=== PATIENT | female | born 1970 | race Caucasian/White ===

== ENCOUNTER → 2018-07-02 12:12 | Outpatient (CLI) | payer OTHER, SELFPAY ==
[2018-07-02 13:51] LABS: Cancer Antigen 125 < 6 U/mL (0-35)
[2018-07-05 17:20] LABS: Human HE4 Antigen 33 pmol/L
== END ==
PROVIDERS: PCP Physician Assistant; Visit Provider Obstetrics & Gynecology
DX: N83.201 Unspecified ovarian cyst, right side (principal)
CPT/HCPCS: 36415; 86304; 86305

== ENCOUNTER 2018-08-08 08:26 | Day surgery (SDC) | payer OTHER, SELFPAY ==
[2018-08-04 14:15] VITALS: BMI 26.8
[2018-08-08] VITALS (13 sets, daily range): BP systolic 100–112; BP diastolic 58–75; PULSE 64–76; RESP 14–18; TEMP 36.1–36.6; O2SAT 94–100; BMI 26.4
--- NOTE | 2018-08-08 | PATH_ITS ---
[facility] Accession Number: [id number] . 01 Material submitted: . PART A: BILATERAL FALLOPIAN TUBES PART B: CERVICAL POLYP . 02 Diagnosis: A. Bilateral Fallopian Tubes, Bilateral Tubal Ligation: Two complete cross-sections of fallopian tube. No evidence of neoplasm. . B. Cervical Polyp: Features suggestive of nabothian cyst. Negative for neoplasm. MRV/08/11/2018 . 02 Electronically signed: . Desmond Carballo MD, PhD, Pathologist NPI- [id number] . 01 Gross description: . Received two formalin-filled containers, both labeled with the patient's name: . A. In a container labeled bilateral fallopian tubes, are two fimbriated, cylindrical-shaped, rough portions of tissue. The first measures 5.0 x 0.7 x 0.6 cm in greatest dimensions. Inked blue. Four ocean import representative sections are submitted in cassette A1. The second piece measures 5.0 x 0.7 x 0.6 cm. Inked black. Four ocean import representative sections are submitted in cassette A2. B. In a container labeled 2. Cervical polyp, the specimen consists of approximately a 1.0 cc aggregate of tissue, mucoid material, and blood, which is filtered, wrapped, and entirely submitted in cassette B. ([id number]) /FRR . 02 Pathologist provided ICD-10: Z30.2, N84.1 . 02 CPT . 061744, 880023 Specimen Comment: A duplicate report has been generated due to demographic updates. Performed at: 01 [facility] [address] [place] [address], [place], [place] [id number] MD Khadar Angulo MD Phone: [phone] Performed at: 02 [facility] [place] [address] [place] [id number] MD Jerome Diaz MD Phone: [phone]
[2018-08-08] MEDS: LACTATED RINGERS 1,000 ML 42 ML IV ×2 (08:59→10:45)
[2018-08-08] MEDS: APREPITANT 40 MG CAPSULE PO (09:29)
--- NOTE | 2018-08-08 10:08 | SUR.OPER ---
Lithotomy on padded OR bed, head on pillow, arms secured on padded arm boards at <90 degrees abduction. Legs secured in padded yellow fins stirrups.
[2018-08-08] MEDS: BUPIVACAINE 0.5% W/ EPI (PF) VIAL 30 ML INJ (10:24)
--- NOTE | 2018-08-08 10:48 | PM.PREOP ---
Pre-operative Note Interval Note Pre-op Check: Yes History & Physical exam performed today by Physician Changes: No
[2018-08-08] MEDS: HYDROMORPHONE 2 MG INJ 0.5 MG IV ×3 (11:00→11:16)
[2018-08-08] MEDS: HYDROCODONE/ACET 5/325 TABLET 1 TAB PO (11:42)
--- NOTE | 2018-09-03 22:38 | P.OP_ITS ---
Operative Date/Time/Diagnoses Date of procedure: 08/08/18 Time of procedure: 11:30 Pre-op diagnosis: Right ovarian cyst Desires sterilization Post-op diagnosis: same Procedure: Procedures Operation Date: 08/08/18 09:45 Actual Procedures Side Surgeon p Laparoscopic Bilateral salpingectomies, lysis of adhesions, excision cervical polyp Claudine Odom MD Indications: Persistent right ovarian cyst Desires sterilization Surgeon: Claudine Odom Anesthesia Type: General Operative Notes Findings: Normal uterus, tubes, and ovaries. Normal gallbladder and liver. Right lower quadrant adhesions Closure Type: primary Specimen(s): left tube, right tube and other (Cervical polyp) Applied: catheter (In and out) Estimated blood loss (mL): 5 Blood products transfused: none Procedure in detail: After informed consent was obtained, the patient was taken to the operating room where she was placed in the dorsal supine position. After adequate general endotracheal anesthesia was achieved, she was placed in the dorsal lithotomy position, and prepped and draped in the usual sterile fashion. A bivalve speculum was placed into the vagina and the anterior lip of the cervix grasped with a single-tooth tenaculum. Cervical os was sequentially dilated until the Zumi uterine manipulator could passed easily into the endometrial cavity. The single-tooth tenaculum was removed from the anterior lip of the cervix. The bivalve speculum was removed from the vagina. Attention was then turned to the abdomen where 6 cc of 0.5% Marcaine with epinephrine were injected in the umbilical fold. A 5 mm incision was made. The Veress needle was placed into the peritoneal cavity, and its placement confirmed by aspiration and drop test. The abdominal cavity was insufflated with 3.2 L of CO2. The Veress needle was removed, and a 5 mm trocar was placed without difficulty. 2 other incisions were made 4 cm lateral to the midline after 6 cc of 0.5% Marcaine with epinephrine were injected and two 5 mm incisions were made. Two 5 mm trocars were placed under direct visualization. The pelvis and abdomen were inspected. The right ovarian cyst was gone. There were adhesions of the bowel to the right anterior abdominal wall. Using the Endo Trevor with cautery, the bowel was taken down off of the anterior abdominal wall. Hemostasis was achieved. The right tube was grasped with an atraumatic grasper. Using the PlasmaKinetic was settings of 40 w, the mesosalpinx was cauterized and cut all the way down to the cornua of the uterus. The tube was removed through the lateral 5 mm trocar. This was repeated on the patient's left tube. The instruments were removed from the abdomen. The CO2 was allowed to escape. The incisions were repaired with 4 0 undyed Vicryl in a subcuticular fashion. The Zumi uterine manipulator was removed from the uterus. There was a polyp coming from the endocervical os. This was removed using the Bovie with a loop. Hemostasis was achieved. Sponge , lap, and instrument counts were correct x2. The patient tolerated the procedure well, and was taken to PACU in stable condition. Complications: none Post-operative Condition: stable Disposition: PACU Plan for aftercare: Home after recovery
--- NOTE | 2018-10-17 10:57 | P.HP_ITS ---
History of Present Illness Date Patient Seen: 08/08/18 Time Patient Seen: 09:30 Chief complaint: laparoscopic RSO left [id number] Narrative: Patient is a 47-year-old 2 para 2 with a persistent right ovarian cyst Patient is here for a laparoscopic excision of right ovarian cyst as well as bilateral salpingectomies for sterilization purposes. Patient History Surgical History H/O bilateral salpingectomy (Resolved 08/08/18) History of shoulder surgery (Resolved) History of third molar tooth extraction (Resolved) History of tonsillectomy (Resolved ~1988) Family & Social History Social History: household members spouse,children Tobacco & Substance use: Smoking Status Never smoker alcohol intake current Substance Use Type does not use Meds Home Medications Medication Instructions Recorded Confirmed Type cetirizine 10 mg PO PRN #0 05/01/11 08/04/18 History tramadol 50 mg PO Q6H PRN #14 tab 08/08/18 Rx Allergies Allergy/AdvReac Type Severity Reaction Status Date / Time codeine Allergy Unknown NAUSEA Verified 08/08/18 08:42 Exam Vital Signs (past 8 hours): Oxygen Delivery Method Room Air Narrative Exam Narrative: HEENT: No thyromegaly, no anterior cervical or supraclavicular lymphadenopathy. Lungs:Clear to auscultation bilaterally, no wheezes. Cardiovascular: Regular rate and rhythm, no murmurs, rubs, or gallops. Abdomen: No scars. No hepatosplenomegaly. No masses palpable. External genitalia: Normal Vagina: Normal Cervix: Normal Bimanual exam: 6 Week size uterus. Mobile. Rectal: No masses. Assessment & Plan (1) Right ovarian cyst: Current visit: No Status: Acute Plan: Assessment/Plan Narrative: Assessment: 47-year-old 2 para 2 with a persistent right ovarian cyst Desires permanent sterilization Plan: Laparoscopic excision of cyst and bilateral salpingectomy The risks, benefits, and alternatives to the procedure were explained to the patient. The risks including bleeding, infection, injury to the bowel, bladder , or ureters. She understands these risks and agrees to proceed. A full PAR-Q was held and consent form was signed.
== END 2018-08-08 12:28 | disposition home or self-care (01) ==
PROVIDERS: PCP Physician Assistant; Visit Provider Obstetrics & Gynecology
PROC: (CPT 58661; principal; 2018-08-08 09:45)
DX: N84.1 Polyp of cervix uteri (principal); Z30.2 Encounter for sterilization
CPT/HCPCS: 58661; 57500; J1100; J1170; J1885; J2250; J2405; J2704; J3010; J8501

== ENCOUNTER → 2019-08-26 16:09 | Outpatient (CLI) | payer OTHER, SELFPAY ==
--- NOTE | 2019-08-26 16:10 | DI.MG.S_ITS ---
BILATERAL DIGITAL SCREENING MAMMOGRAM 3D/2D WITH CAD: 08/26/2019 CLINICAL: Routine screening. Comparison is made to exams dated: 12/06/2017 mammogram, 10/05/2016 mammogram, and 10/04/2015 mammogram - [facility]. The tissue of both breasts is heterogeneously dense. This may lower the sensitivity of mammography. Current study was also evaluated with a Computer Aided Detection (CAD) system. No significant masses, calcifications, or other findings are seen in either breast. There has been no significant interval change. IMPRESSION: NEGATIVE There is no mammographic evidence of malignancy. A 1 year screening mammogram is recommended. This exam was interpreted at Station ID: [id number]. NOTE: For mammograms, a report in lay terms will be sent to the patient. Approximately 15% of breast malignancies will not be visualized mammographically. In the management of a palpable breast mass, a negative mammogram must not discourage biopsy of a clinically suspicious lesion. Electronically Signed By: Diaz dowell/owen:08/26/2019 17:32:14 copy to: Michelle Solis PA-C letter sent: Normal Exam ACR BI-RADS Category 1: Negative 3341F
== END ==
PROVIDERS: PCP Physician Assistant; Visit Provider Physician Assistant
DX: Z12.31 Encounter for screening mammogram for malignant neoplasm of breast (principal)
CPT/HCPCS: 77063; 77067

== ENCOUNTER → 2019-10-23 08:55 | Outpatient (CLI) | payer OTHER, SELFPAY | PROVIDERS: PCP Physician Assistant | DX: N90.89 Other specified noninflammatory disorders of vulva and perineum (principal) | CPT/HCPCS: 87255 ==

== ENCOUNTER → 2019-10-23 09:03 | Outpatient (CLI) | payer OTHER, SELFPAY ==
[2019-10-27 14:15] LABS: HSV 2 IGG AB < 0.90 index (< 0.90); HSV1IGG < 0.90 index (< 0.90)
[2019-10-29 14:45] LABS: HSV 1 IgM Screen Positive (Negative); HSV 2 IgM Screen Positive (Negative)
== END ==
PROVIDERS: PCP Physician Assistant
DX: N90.89 Other specified noninflammatory disorders of vulva and perineum (principal)
CPT/HCPCS: 36415; 86695; 86696; 87070; 87205; 87255

== ENCOUNTER → 2020-09-19 16:02 | Outpatient (CLI) | payer OTHER, SELFPAY ==
--- NOTE | 2020-09-19 | DI.MG.S_ITS ---
BILATERAL DIGITAL SCREENING MAMMOGRAM 3D/2D WITH CAD: 09/19/2020 CLINICAL: Routine screening. Comparison is made to exams dated: 08/26/2019 mammogram, 12/06/2017 mammogram, and 10/05/2016 mammogram - [facility]. The tissue of both breasts is heterogeneously dense. This may lower the sensitivity of mammography. Current study was also evaluated with a Computer Aided Detection (CAD) system. No significant masses, calcifications, or other findings are seen in either breast. There has been no significant interval change. IMPRESSION: NEGATIVE There is no mammographic evidence of malignancy. A 1 year screening mammogram is recommended. This exam was interpreted at Station ID: [id number]. NOTE: For mammograms, a report in lay terms will be sent to the patient. Approximately 15% of breast malignancies will not be visualized mammographically. In the management of a palpable breast mass, a negative mammogram must not discourage biopsy of a clinically suspicious lesion. Electronically Signed By: Diaz dowell/owen:09/19/2020 17:49:26 copy to: Claudine Odom letter sent: Normal Exam ACR BI-RADS Category 1: Negative 3341F
[2020-09-19 16:50] LABS: Add Manual Diff / Slide Review NO; Basophils Absolute Auto 0 /uL (0-100); Basophils Percent Auto 0.3 % (0-2); Eosinophils Absolute Auto 100 /uL (0-450); Eosinophils Percent Auto 0.9 % (2-4); Hematocrit 38.4 % (36-46); Hemoglobin 12.9 g/dL (12.0-16.0); Lymphocytes Absolute Auto 1700 /uL (1100-4500); Lymphocytes Percent Auto 21.3 % (25-40); Mean Corpuscular HGB Conc 33.6 % (30-36); Mean Corpuscular Hemoglobin 30.4 PG (26-34); Mean Corpuscular Volume 90.5 fL (80-100); Monocytes Absolute Auto 500 /uL (0-900); Monocytes Percent Auto 6.3 % (3-14); Neutrophils Absolute Auto 5600 /uL (1500-7000); Neutrophils Percent Auto 71.2 % (50-75); Platelet Count 299 X10^3/uL (150-400); Red Blood Cell Count 4.24 X10^6/uL (4.0-5.2); Red Cell Distribution Width 12.6 % (11.6-14.8); White Blood Cell Count 7.9 X10^3/uL (4.5-11.0)
[2020-09-19 17:41] LABS: Free T4, Direct Thyroxine 1.05 ng/dL (0.78-2.19)
[2020-09-19 17:54] LABS: Cancer Antigen 125 6.4 U/mL (0-35)
[2020-09-19 17:55] LABS: Thyroid Stimulating Hormone 1.61 uIU/mL (0.47-4.68)
[2020-09-19 18:10] LABS: HIV 1 & 2 Ab/Ag 4th Gen Combo NEGATIVE (NEGATIVE); Hep C Virus Ab w/Reflex Quant NEGATIVE s/c (NEGATIVE)
[2020-09-20 14:10] LABS: Hepatitis BE Antigen Negative (Negative); RPR Screen Non Reactive (Non Reactive)
== END ==
PROVIDERS: PCP Nurse Practitioner; Referring Provider Obstetrics & Gynecology; Visit Provider Nurse Practitioner
DX: Z12.31 Encounter for screening mammogram for malignant neoplasm of breast (principal); R14.0 Abdominal distension (gaseous); R53.83 Other fatigue; Z20.2 Contact with and (suspected) exposure to infections with a predominantly sexual mode of transmission
CPT/HCPCS: 36415; 77063; 77067; 84439; 84443; 85025; 86304; 86592; 86803; 87350; 87389

== ENCOUNTER → 2021-08-14 07:41 | Outpatient (CLI) | payer OTHER, SELFPAY ==
--- NOTE | 2021-08-14 07:44 | DI.US.S_ITS ---
PROCEDURE: US PELVIC COMPLETE INDICATIONS: Pelvic pain TECHNIQUE: Real-time scanning was performed of the pelvic organs, with image documentation. Additional endovaginal scanning was necessary due to incomplete visualization of the adnexal and endometrial structures by transabdominal scanning. COMPARISON: [facility], US, PELVIC COMPLETE, 11/20/2017, 9:22. [facility], US, US PELVIC COMPLETE, 06/10/2019, 15:40. FINDINGS: Uterus: Uterus is anteverted and normal in size at 7.1 x 4.3 x 4.2 cm. The myometrium is diffusely heterogeneous and there is an anterior intramural fibroid measuring 1.7 cm. Nabothian cysts are present in the cervix. Several small echogenic reflectors are present in the cervix. The endometrium measures 3.8 mm in combined thickness. Ovaries: Neither ovary was convincingly seen. There is fluid-filled bowel in the right adnexa. No convincing adnexal mass. Other: No pathologic free abdominal or pelvic fluid. IMPRESSION: 1. Mildly heterogeneous uterus with an intramural fibroid measuring 1.7 cm. 2. No suspicious adnexal masses or visualization of either ovary. Dictated by: Hanna Bean M.D. on 08/14/2021 at 8:46 Approved by: Hanna Bean M.D. on 08/14/2021 at 8:51
== END ==
PROVIDERS: PCP Physician Assistant Medical; Referring Provider Obstetrics & Gynecology; Visit Provider Obstetrics & Gynecology
DX: R10.2 Pelvic and perineal pain (principal); D25.1 Intramural leiomyoma of uterus
CPT/HCPCS: 76830; 76856

== ENCOUNTER → 2021-08-18 07:47 | Outpatient (CLI) | payer OTHER, SELFPAY ==
[2021-08-18 10:35] LABS: Cancer Antigen 125 < 5.5 U/mL (0-35)
== END ==
PROVIDERS: PCP Physician Assistant Medical; Referring Provider Obstetrics & Gynecology; Visit Provider Obstetrics & Gynecology
DX: R14.0 Abdominal distension (gaseous) (principal); R93.89 Abnormal findings on diagnostic imaging of other specified body structures; R10.2 Pelvic and perineal pain; D25.9 Leiomyoma of uterus, unspecified
CPT/HCPCS: 36415; 86304

== ENCOUNTER → 2021-09-20 16:07 | Outpatient (CLI) | payer OTHER, SELFPAY ==
--- NOTE | 2021-09-20 | DI.MG.S_ITS ---
BILATERAL DIGITAL SCREENING MAMMOGRAM 3D/2D WITH CAD: 09/20/2021 CLINICAL: Routine screening. Comparison is made to exams dated: 09/19/2020 mammogram, 08/26/2019 mammogram, and 12/06/2017 mammogram - [facility]. The tissue of both breasts is heterogeneously dense. This may lower the sensitivity of mammography. Current study was also evaluated with a Computer Aided Detection (CAD) system. No significant masses, calcifications, or other findings are seen in either breast. There has been no significant interval change. IMPRESSION: NEGATIVE There is no mammographic evidence of malignancy. A 1 year screening mammogram is recommended. This exam was interpreted at Station ID: [id number]. NOTE: For mammograms, a report in lay terms will be sent to the patient. Approximately 15% of breast malignancies will not be visualized mammographically. In the management of a palpable breast mass, a negative mammogram must not discourage biopsy of a clinically suspicious lesion. Electronically Signed By: Ac Norwood M.D., jr/owen:09/20/2021 16:27:00 copy to: Claudine Odom letter sent: Normal Exam ACR BI-RADS Category 1: Negative 3341F
== END ==
PROVIDERS: PCP Physician Assistant Medical; Referring Provider Physician Assistant Medical; Visit Provider Physician Assistant Medical
DX: Z12.31 Encounter for screening mammogram for malignant neoplasm of breast (principal)
CPT/HCPCS: 77063; 77067

== ENCOUNTER → 2022-06-19 09:19 | Outpatient (CLI) | payer OTHER, SELFPAY ==
--- NOTE | 2022-06-19 09:21 | DI.US.S_ITS ---
PROCEDURE: US PELVIC COMPLETE INDICATIONS: RIGHT PELVIC PAIN TECHNIQUE: Real-time scanning was performed of the pelvic organs, with image documentation. Additional endovaginal scanning was necessary due to incomplete visualization of the adnexal and endometrial structures by transabdominal scanning. COMPARISON: [facility], US, US PELVIC COMPLETE, 06/10/2019, 15:40. [facility], US, US PELVIC COMPLETE, 07/02/2018, 12:05. [facility], US, US ABDOMEN COMPLETE, 05/08/2021, 10:51. [facility], US, US PELVIC COMPLETE, 08/14/2021, 8:05. FINDINGS: Technically limited examination. Uterus: Uterus is anteverted and normal in size at 9.0 x 5.2 x 5.0 cm. The myometrium is mildly heterogeneous. The endometrium measures 5.5 mm combined thickness. There is a 1.9 x 1.7 x 1.5 cm intramural fibroid in the right anterior wall. Ovaries: The right ovary is not well seen. The left ovary measures 3.5 x 2.8 x 2.0 cm, with a calculated ovarian volume of 10.2 cc. The ovaries have a normal sonographic appearance. Less than 12 follicles are seen in left ovary. No adnexal masses are seen. Other: No pathologic free abdominal or pelvic fluid. IMPRESSION: 1. Limited examination. Right ovary is not visualized. Left ovary is grossly normal. 2. Myomatous uterus with a 1.9 cm intramural fibroid in the right anterior uterine wall. We strive to produce accurate, complete, and clear reports of imaging services. To assist us in improving patient care, this report was composed using standard report templates and voice recognition software. Therefore, it may contain abnormal punctuation, insertions and/or omissions. Occasional wrong-word or sound-alike substitutions may occur. Though we review the report and make efforts to correct it, we do recommend that the report be read carefully in proper context to recognize any text inaccuracies. Dictated by: Libby Cardona M.D. on 06/19/2022 at 16:04 Approved by: Libby Cardona M.D. on 06/19/2022 at 16:07
== END ==
PROVIDERS: PCP Physician Assistant Medical; Referring Provider Obstetrics & Gynecology; Visit Provider Obstetrics & Gynecology
DX: N94.89 Other specified conditions associated with female genital organs and menstrual cycle (principal); D25.1 Intramural leiomyoma of uterus
CPT/HCPCS: 36415; 76830; 76856

== ENCOUNTER → 2022-11-27 13:55 | Outpatient (CLI) | payer OTHER, SELFPAY ==
--- NOTE | 2022-11-27 13:56 | DI.CT.S_ITS ---
PROCEDURE: CT ABDOMEN PELVIS W CON INDICATIONS: RLQ pain, cannot visualize on US TECHNIQUE: After the administration of oral and intravenous contrast, axial sections were acquired from the lung bases to the pubic symphysis. Coronal and sagittal reformats were performed. For radiation dose reduction, the following was used: automated exposure control, adjustment of mA and/or kV according to patient size. COMPARISON:[facility], US, US PELVIC COMPLETE, 06/19/2022, 9:36. FINDINGS: Image quality: Good Lower chest: Kmrj-pt-owcistvz esophageal wall thickening and patulous appearance with suspected reflux. Mitral annular calcifications. Solid organs: The liver is unremarkable. Gallbladder is unremarkable. No pathologic dilation of the biliary tree or pancreatic duct. No splenomegaly. No adrenal nodules. No hydronephrosis. Multifocal small areas of cortical scarring. Vessels and lymph nodes: Main portal vein is patent. No abdominal aortic aneurysm. No pathologic adenopathy by size criteria. Bowel and peritoneum: No evidence of small bowel obstruction. No pathologic ascites. Moderate colorectal stool burden. Normal appendix. Body wall: Tiny fat containing umbilical hernia. Pelvis: Pelvic structures are better evaluated on ultrasound. Suspected uterine fibroid. Ovaries appear normal size. Bones: No acute or suspicious osseous abnormality. IMPRESSION: Normal appendix. No acute abdominal pelvic pathology. Other incidental and favored nonacute findings above. Emfg-[id number] esophageal wall thickening with suspected reflux, not well evaluated on CT. Consider correlation with fluoroscopy and/or endoscopy if there is clinical concern. Dictated by: Gadiel Lala M.D. on 11/27/2022 at 16:05 Approved by: Gadiel Lala M.D. on 11/27/2022 at 16:12
--- NOTE | 2022-11-27 14:01 | DI.MG.S_ITS ---
BILATERAL DIGITAL SCREENING MAMMOGRAM 3D/2D WITH CAD: 11/27/2022 CLINICAL: Routine screening. Family history of breast cancer. Comparison is made to exams dated: 09/20/2021 mammogram, 09/19/2020 mammogram, and 08/26/2019 mammogram - [facility]. There are scattered areas of fibroglandular density in both breasts (category b / 25%-50% glandular tissue). Current study was also evaluated with a Computer Aided Detection (CAD) system. No significant masses, calcifications, or other findings are seen in either breast. There has been no significant interval change. IMPRESSION: NEGATIVE There is no mammographic evidence of malignancy. A 1 year screening mammogram is recommended. This exam was interpreted at Station ID: [id number]. NOTE: For mammograms, a report in lay terms will be sent to the patient. Approximately 15% of breast malignancies will not be visualized mammographically. In the management of a palpable breast mass, a negative mammogram must not discourage biopsy of a clinically suspicious lesion. Electronically Signed By: Diaz dowell/owen:11/28/2022 16:40:49 copy to: Claudine Odom letter sent: Normal Exam ACR BI-RADS Category 1: Negative 3341F
[2022-11-27 17:07] LABS: Cancer Antigen 125 < 5.5 U/mL (0-35)
== END ==
PROVIDERS: PCP Physician Assistant Medical; Referring Provider Obstetrics & Gynecology; Visit Provider Obstetrics & Gynecology
DX: R10.31 Right lower quadrant pain (principal); I34.81 Nonrheumatic mitral (valve) annulus calcification
CPT/HCPCS: 36415; 74177; 77063; 77067; 86304; Q9967

== ENCOUNTER → 2024-01-27 12:51 | Outpatient (CLI) | payer OTHER, SELFPAY ==
--- NOTE | 2024-01-27 12:53 | DI.MG.S_ITS ---
BILATERAL DIGITAL SCREENING MAMMOGRAM 3D/2D WITH CAD: 01/27/2024 CLINICAL: Routine screening. Family history of breast cancer. Comparison is made to exams dated: 11/27/2022 mammogram, 09/20/2021 mammogram, and 09/19/2020 mammogram - [facility]. There are scattered areas of fibroglandular density in both breasts (category b / 25%-50% glandular tissue). Current study was also evaluated with a Computer Aided Detection (CAD) system. No significant masses, calcifications, or other findings are seen in either breast. There has been no significant interval change. IMPRESSION: NEGATIVE There is no mammographic evidence of malignancy. A 1 year screening mammogram is recommended. Based on the Tyrer Cuzick model (a risk assessment model) the patient's lifetime risk is 16.4% and her 10 year risk is 4.6%. According to the ACR, ACS, and NCCN guidelines, an annual breast MRI exam along with mammogram is recommended if the patient's lifetime risk is 20% or greater. This exam was interpreted at Station ID: [id number]. NOTE: For mammograms, a report in lay terms will be sent to the patient. Approximately 15% of breast malignancies will not be visualized mammographically. In the management of a palpable breast mass, a negative mammogram must not discourage biopsy of a clinically suspicious lesion. Electronically Signed By: Hanna looney/owen:01/27/2024 15:35:39 copy to: Claudine Odom letter sent: Normal Exam ACR BI-RADS Category 1: Negative 3341F
== END ==
PROVIDERS: PCP Physician Assistant Medical; Referring Provider Obstetrics & Gynecology; Visit Provider Obstetrics & Gynecology
DX: Z12.31 Encounter for screening mammogram for malignant neoplasm of breast (principal); Z80.3 Family history of malignant neoplasm of breast; R92.323 Mammographic fibroglandular density, bilateral breasts
CPT/HCPCS: 77063; 77067

== ENCOUNTER → 2024-07-08 06:48 | Outpatient (CLI) | payer OTHER, SELFPAY ==
--- NOTE | 2024-07-08 06:48 | DI.US.S_ITS ---
PROCEDURE: US PELVIC COMPLETE INDICATIONS: PMB TECHNIQUE: Real-time scanning was performed of the pelvic organs, with image documentation. Additional endovaginal scanning was necessary due to incomplete visualization of the adnexal and endometrial structures by transabdominal scanning. COMPARISON: [facility], US, US PELVIC COMPLETE, 06/19/2022, 9:36. FINDINGS: Uterus: Uterus is anteverted and normal in size at 8.6 x 5.1 x 5.5 cm. The myometrium is homogeneous. The endometrium measures 8.4 mm combined thickness. Previously seen fibroid is not visualized today. Ovaries: The ovaries are not seen. No adnexal masses. Other: No pathologic free abdominal or pelvic fluid. IMPRESSION: Endometrium is thickened measuring 8.4 mm. Recommend further evaluation with endometrial sampling or short-term follow-up ultrasound. The ovaries are not seen. No adnexal masses. Previously seen fibroid is not visualized on today's exam. We strive to produce accurate, complete, and clear reports of imaging services. To assist us in improving patient care, this report was composed using standard report templates and voice recognition software. Therefore, it may contain abnormal punctuation, insertions and/or omissions. Occasional wrong-word or sound-alike substitutions may occur. Though we review the report and make efforts to correct it, we do recommend that the report be read carefully in proper context to recognize any text inaccuracies. Dictated by: Alan Logan M.D. on 07/08/2024 at 9:10 Approved by: Alan Logan M.D. on 07/08/2024 at 9:12
== END ==
PROVIDERS: PCP Physician Assistant Medical; Referring Provider Obstetrics & Gynecology; Visit Provider Obstetrics & Gynecology
DX: N95.0 Postmenopausal bleeding (principal); R14.0 Abdominal distension (gaseous); R93.89 Abnormal findings on diagnostic imaging of other specified body structures
CPT/HCPCS: 76830; 76856

== ENCOUNTER 2024-07-28 16:41 | Emergency (ER) | payer OTHER, SELFPAY ==
--- NOTE | 2024-07-28 16:49 | DI.RAD.S_ITS ---
PROCEDURE: XR ANKLE RT MIN 3V INDICATIONS: injury TECHNIQUE: 3 views of the ankle were acquired. COMPARISON: None. FINDINGS: Bones: No fractures or dislocations. Ankle mortise is normally aligned. No suspicious bony lesions. Soft tissues: No tibiotalar joint effusion. Achilles tendon appears normal. IMPRESSION: No acute bony abnormality or significant effusion. Dictated by: Cesar Zarco M.D. on 07/28/2024 at 17:10 Approved by: Cesar Zarco M.D. on 07/28/2024 at 17:11
[2024-07-28 16:50] VITALS: BP 162/86; PULSE 98; RESP 16; TEMP 36.6; O2SAT 97; BMI 30.3
--- NOTE | 2024-07-28 17:24 | ED_ITS ---
<Statement entered by Marty Jurado DO - 07/28/24 17:49> Dr. Jurado: I was immediately available in the department for consultation. Documentation has been reviewed. I agree with assessment and plan. HPI - Extremity Injury (Lower) General Chief Complaint: Extremity Injury, Lower Stated Complaint: haerd a pop in right leg when playing pickleball Time Seen by Provider: 07/28/24 16:50 Source: patient Mode of arrival: Family Vehicle History of Present Illness HPI Narrative: 53-year-old female presents to the ED status post a right calf injury sustained 3 days ago when playing pickleball. Patient states she heard a pop and felt some pain in the right calf, by bruising. Patient states that the pain is exacerbated by flexing the foot. Patient has crutches to help with ambulation, but is able to bear weight and walk. No numbness, tingling, weakness. Related Data Home Medications Medication Instructions Recorded Confirmed escitalopram oxalate 10 mg tablet 10 mg PO DAILY 12/19/21 07/05/22 (Lexapro) Previous Rx's Medication Instructions Recorded progesterone micronized 100 mg 100 mg PO QAM #30 caps 02/13/23 capsule (Prometrium) valacyclovir 500 mg tablet See Rx Instructions .Route 04/04/23 .COMPLEX #10 tabs Allergies Allergy/AdvReac Type Severity Reaction Status Date / Time codeine Allergy Unknown NAUSEA Verified 07/28/24 16:54 Review of Systems Constitutional Constitutional: Denies chills, Denies fatigue, Denies fever(s), Denies frequent falls, Denies lethargy and Denies weakness Eyes Eyes: Denies change in vision, Denies eye discharge, Denies irritation and Denies loss of vision ENT Ears, Nose, Mouth, and Throat: Denies change in voice, Denies dizziness, Denies neck pain, Denies sore throat and Denies throat swelling Cardiovascular Cardiovascular: Denies chest pain, Denies irregular heart rhythm, Denies l ightheadedness, Denies palpitations, Denies dyspnea, Denies dyspnea on exertion and Denies orthopnea Respiratory Respiratory: Denies cough, Denies dyspnea, Denies dyspnea on exertion and Denies wheezing Gastrointestinal Gastrointestinal: Denies abdominal pain, Denies change in bowel habits, Denies diarrhea, Denies nausea and Denies vomiting Musculoskeletal Musculoskeletal: Denies neck pain and Denies numbness Comments: Right ankle bruising, pain Integumentary/Breasts Skin/Breast: Denies pruritus, Denies erythema, Denies rash and Denies wounds Neurologic Neurologic: Denies behavioral changes, Denies confusion, Denies dizziness, Denies frequent falls, Denies loss of vision, Denies numbness and Denies weakness Psychiatric Psychiatric: Denies anxiety, Denies behavioral changes, Denies confusion, Denies depression, Denies homicidal ideation and Denies suicidal ideation Endocrine Endocrine: Denies fatigue, Denies flushing and Denies palpitations Hematologic/Lymphatic Hematologic/Lymphatic: Denies easy bruising Allergic/Immunologic Allergic/Immunologic: Denies urticaria, Denies throat swelling and Denies wheezing Patient History Surgical History H/O bilateral salpingectomy (08/08/18) History of shoulder surgery History of tonsillectomy (~1988) History of third molar tooth extraction Social History household members: spouse and children Smoking Status: Never smoker alcohol intake: current Smoking Status: Never smoker alcohol intake frequency: 0-2 drinks per day Substance Use Type: does not use Exam Narrative Exam Narrative: Const General:?cooperative, healthy appearing and comfortable [facility] Head:?normal to inspection Ears:?hearing grossly normal bilaterally Nose:?external nose normal Face and sinus:?normal facial exam and sinuses nontender Mouth:?oral mucosae normal Throat:?posterior oropharynx normal Eyes General:?appearance normal, both eyes and all related structures Neck Neck:?normal visual inspection and no lymphadenopathy noted Resp Effort & Inspection:?normal respiratory effort Auscultation:?clear to auscultation bilaterally Cardio Rate:?regular rate Rhythm:?regular rhythm Musculoskeletal There is tenderness to palpation of the right calf. There is extensive bruising of the area with dependent bruising in the right heel. No bony tenderness to palpation. Strength and sensation is intact. Compartments are soft. Full range of motion. Neurovascularly intact. Neuro General:?patient alert, patient awake and patient oriented x3 Initial Vital Signs Initial Vital Signs: Vital Signs Temperature 97.8 F 07/28/24 16:50 Pulse Rate 98 H 07/28/24 16:50 Respiratory Rate 16 07/28/24 16:50 Blood Pressure 162/86 H 07/28/24 16:50 Pulse Oximetry 97 07/28/24 16:50 Oxygen Delivery Method Room Air 07/28/24 16:50 Course Orders Ordered: ED Orders 07/28/24 16:49 XR ankle RT min 3V Stat Vital Signs Vital signs: Vital Signs - 8 hr 07/28/24 16:50 Temperature 97.8 F Pulse Rate 98 H Respiratory Rate 16 Blood Pressure 162/86 H Pulse Oximetry 97 Oxygen Delivery Method Room Air MDM - Extremity Injury (Lower) MDM Narrative Medical decision making narrative: 53-year-old female presents to the ED status post a right calf injury sustained 3 days ago when playing pickleball. Patient states she heard a pop and felt some pain in the right calf, by bruising. Patient states that the pain is exacerbated by flexing the foot. Patient has crutches to help with ambulation, but is able to bear weight and walk. Concern for fracture/dislocation versus musculoskeletal sprain/strain versus other. Physical exam is not consistent with a complete Achilles tear, possible partial tear of calf muscles versus Achilles tendon. X-ray was obtained which did not show any bony abnormality or significant effusion. Discussed findings with patient. Recommend Chirag wrap, rest, elevation, heat packs, Tylenol. Recommend follow-up with PCP. ED return precautions discussed with patient. Patient verbalized understanding. Medical records reviewed: Yes Discharge Plan Departure Patient Disposition: Home Clinical Impression: Strain of right calf muscle Instructions: DI for Calf Muscle Strain Activity Restrictions/Additional Instructions: You were evaluated in the ED today for a right leg injury. The x-ray was normal. It appears that you may have a musculoskeletal sprain/strain of the calf from the injury. You may keep the leg in an Chirag wrap for comfort. You may take Tylenol for pain. You may apply heat packs. Keeping the leg elevated and resting it for the next few days will be helpful. Please follow-up with your PCP as soon as possible. Return to the ED if you have any worsening symptoms, numbness, tingling, weakness. Prescriptions: No Action valacyclovir 500 mg tablet See Rx Instructions .ROUTE .COMPLEX Qty: 10 3RF Dose Instruction: take 1 tablet by mouth twice a day for 5 days AT ONSET OF LESION Rx Instructions: take 1 tablet by mouth twice a day for 5 days AT ONSET OF LESION escitalopram oxalate [Lexapro] 10 mg tablet 10 mg PO DAILY progesterone micronized [Prometrium] 100 mg capsule 100 mg PO QAM Qty: 30 11RF Referrals: Cynthia Brooke PA-C [Primary Care Provider] - Stand Alone Forms: Patient Portal/API
[2024-07-28 17:26] VITALS: BP 130/75; PULSE 86; RESP 16; O2SAT 97
== END 2024-07-28 17:26 | disposition home or self-care (01) ==
PROVIDERS: Emergency Provider Student in an Organized Health Care Education/Training Program; PCP Physician Assistant Medical
DX: S86.911A Strain of unspecified muscle(s) and tendon(s) at lower leg level, right leg, initial encounter (principal); X58.XXXA Exposure to other specified factors, initial encounter; Y93.69 Activity, other involving other sports and athletics played as a team or group
CPT/HCPCS: 73610; 99283

== ENCOUNTER → 2025-03-03 | Outpatient (CLI) | payer OTHER, SELFPAY ==
--- NOTE | 2025-03-03 11:39 | DI.MG.S_ITS ---
MM screening mammo BI: 03/03/2025. BI-RADS: 1 CLINICAL: 54-year old female for bilateral screening mammogram. Tyrer-Cuzick lifetime risk of 16.5%. Current reported family history of breast cancer: sister. The patient reports testing negative for BRCA gene mutation. PRIOR EXAMS 01/27/2024, 11/27/2022, 09/20/2021, 09/19/2020, 08/26/2019, 12/06/2017, 10/05/2016, 10/04/2015. MAMMOGRAPHY TECHNIQUE: 2D and 3D (tomosynthesis) digital mammographic views obtained, with additional images as needed for full coverage. Current study was also evaluated with a Computer Aided Detection (CAD) system. DENSITY B. There are scattered areas of fibroglandular density. MAMMOGRAPHY FINDINGS Bilateral: No suspicious mass, asymmetry, microcalcification, or other abnormality seen. IMPRESSION: * No evidence of malignancy. RECOMMENDATIONS Bilateral * Annual screening mammography. OVERALL ASSESSMENT CATEGORY BI-RADS-1: Negative. The [employer] recommends annual screening mammography beginning at age 40 for women with average risk of breast cancer. ELECTRONICALLY SIGNED: Tanya Pak M.D. on 03/04/2025 at 07:26:59 AM PT Interpreting Station ID: [id number]
== END ==
LOC: MAMMO 11:39
PROVIDERS: PCP Physician Assistant Medical; Referring Provider Physician Assistant Medical; Visit Provider Physician Assistant Medical
DX: Z12.31 Encounter for screening mammogram for malignant neoplasm of breast (principal); Z80.3 Family history of malignant neoplasm of breast
CPT/HCPCS: 77063; 77067

== ENCOUNTER → 2025-08-23 13:38 | Outpatient (CLI) | payer OTHER, SELFPAY ==
--- NOTE | 2025-08-23 13:42 | DI.US.S_ITS ---
PROCEDURE: US PELVIC COMPLETE INDICATIONS: spotting/pmb TECHNIQUE: Real-time scanning was performed of the pelvic organs, with image documentation. Additional endovaginal scanning was necessary due to incomplete visualization of the adnexal and endometrial structures by transabdominal scanning. COMPARISON: [facility], US, US PELVIC COMPLETE, 07/08/2024, 6:56. FINDINGS: Uterus: Uterus is anteverted and normal in size at 8.3 x 4.2 x 0.5 cm. The myometrium is homogeneous. The endometrium measures 4.9 mm combined thickness. IUD in expected central position. 1.1 cm anterior intramural fibroid decreased in size from prior exam. Ovaries: Ovaries not identified. No adnexal masses seen. Other: No pathologic free abdominal or pelvic fluid. IMPRESSION: 1. Endometrial complex within normal limits at 4.9 mm. 2. Decrease in size of 1.1 cm anterior intramural fibroid. 3. Ovaries not identified. We strive to produce accurate, complete, and clear reports of imaging services. To assist us in improving patient care, this report was composed using standard report templates and voice recognition software. Therefore, it may contain abnormal punctuation, insertions and/or omissions. Occasional wrong-word or sound-alike substitutions may occur. Though we review the report and make efforts to correct it, we do recommend that the report be read carefully in proper context to recognize any text inaccuracies. Dictated by: Rodger FARFAN Interpreted: Sukhjinder Weldon MD on 08/23/2025 at 15:22 Transcribed by: LOW on 08/23/2025 at 15:32 Approved by: Sukhjinder Weldon M.D. on 08/23/2025 at 17:18
== END ==
LOC: US 13:41
PROVIDERS: PCP Physician Assistant Medical; Referring Provider Physician Assistant Medical; Visit Provider Obstetrics & Gynecology
DX: N95.0 Postmenopausal bleeding (principal); D25.1 Intramural leiomyoma of uterus
CPT/HCPCS: 76830; 76856